=== PATIENT | male | born 1995 | race Caucasian/White ===

== ENCOUNTER 2018-03-31 00:49 | Emergency (ER) | payer SELFPAY ==
[2018-03-31 00:49] VITALS: BP 160/105; PULSE 101; RESP 20; TEMP 36.7; O2SAT 98; BMI 23.5
--- NOTE | 2018-03-31 01:04 | ED.DCSUM_ITS ---
- ER Visit Summary Date of Service: 03/31/18 Chief Complaint: [] Left thumb infection History of Present Illness: The patient is a 22 M for the last 2 weeks he has had a paronychia. It started in group home. They gave him antibiotics for 10 days which helped. He had an area that was fluctuant that he opened and drained out all the purulence when it first started. It slowly been healing and scabbed over. He noticed some redness on the inside of the left thumb today. There is some mild pain. Came in for further evaluation as he thinks it might be infected again. Physical Examination: [] Vital signs reviewed General: Well-nourished well-developed Head: Normocephalic atraumatic Eyes: Pupils equal round and reactive to light extraocular movements intact ENT: TMs clear no hemotympanum no trauma Neck: Nontender full range of motion Cardiovascular: Regular rate rhythm no murmurs normal S1-S2 Respiratory: No distress clear to auscultation bilaterally chest nontender Abdomen: Soft nontender nondistended normal bowel sounds no masses Back: Nontender no CVA tenderness Extremities: Left thumb shows a healing paronychia scab. This was partially removed with no drainage. There is no fluctuance or abscess. There is some very mild erythema on the distal portion of the thumb around the scab measuring 0.5 cm. Neuro alert oriented cranial nerves II through XII intact normal strength sensation reflexes Test Results: [] Emergency Department Course and Treatment: [] At this time I feel the patient likely still has a mild superficial infection of the skin likely cellulitis. There is nothing to drain in the paronychia. Will be placed on Bactrim and will do warm soaks. Will return if he worsens. Will use Tylenol and/or ibuprofen Treatment Plan: [] Disposition: [] Impression: [] Left thumb paronychia This note was generated with [employer] dictation software. It may contain incorrect words, spelling, and punctuation that were not noted in review of the chart prior to signing ED Disposition - Plan for ED Patient: Disposition: Home or Assisted Living Chief Complaint: Wound Instructions: ED Fingernail Infec Prescriptions: Smz/Tmp Ds [Bactrim Ds] 1 tab PO BID #20 tab Referrals: Prateek Dewitt MD [STAFF PHYSICIAN] - NOT,DEFINED [Primary Care Provider] -
--- NOTE | 2018-03-31 01:04 | ED.DEP ---
ED Disposition - Plan for ED Patient: Disposition: Home or Assisted Living Chief Complaint: Wound Instructions: ED Fingernail Infec Prescriptions: Smz/Tmp Ds [Bactrim Ds] 1 tab PO BID #20 tab Referrals: NOT,DEFINED [Primary Care Provider] - Prateek Dewitt MD [STAFF PHYSICIAN] -
[2018-03-31] MEDS: Smz/Tmp Ds Tablet 1 TABLET PO (01:06)
[2018-03-31 01:14] VITALS: BP 154/80; PULSE 98; RESP 18; O2SAT 97
== END 2018-03-31 01:19 | disposition home or self-care (01) ==
PROVIDERS: Emergency Provider Emergency Medicine
DX: L03.012 Cellulitis of left finger (principal); Z72.0 Tobacco use; Z86.19 Personal history of other infectious and parasitic diseases
CPT/HCPCS: 99283